=== PATIENT | female | born 1965 | race Caucasian/White ===

== ENCOUNTER 2017-05-16 19:26 | Inpatient (IN) | payer OTHER ==
[~2017-05-16] VITALS: Ht 157.5 cm; Wt 94.4 kg
[~2017-05-16 19:26] MED LIST: AMLODIPINE BESY10 MG PO; BENICAR HCT 401 EAC1 PO; BYSTOLIC20 MG PO; CALCIUM 600 MG1 EACH PO; CEFDINIR300 MG PO; CEFTIN250 MG PO; CITALOPRAM HBR20 MG PO; COMPAZINE10 MG PO; LEVOXYL125 MCG PO; LIPITOR80 MG PO; LISINOPRIL20 MG PO; LO-DOSE ASPIRIN81 M1 PO; NABUMETONE750 MG PO; OXYBUTYNIN CHLOR5 MG PO; PROMETHAZINE V180 ML PO; TESSALON200 MG PO; VOLTAREN 1% GE100 GM TP; ZITHROMAX500 MG PO; ZYRTEC10 M3 PO
[2017-05-16 20:24] LABS: HEMATOCRIT 39.7 % (36.0-46.0); HEMOGLOBIN 13.7 G/DL (11.9-15.5); MCH 30.5 PG (29.0-34.0); MCHC 34.5 G/DL (30.0-36.0); MCV 88.4 FL (83-99); PLATELET COUNT 354 K/uL (156-360); RBC DIS.WIDTH-CV 12.5 % (11.8-14.6); RBC DIS.WIDTH-SD 40.8 % (39-53); RED BLOOD COUNT 4.49 M/uL (3.80-5.20); WHITE BLOOD COUNT 9.3 K/uL (4.1-10.2)
[2017-05-16 20:40] LABS: CHLORIDE 108 mEq/L (99-109); POTASSIUM 3.6 mEq/L (3.7-5.4); SODIUM 140 mEq/L (136-147)
[2017-05-16 20:41] LABS: GLUCOSE 129 mg/dL (70-99)
[2017-05-16 20:45] LABS: CREATININE 0.7 mg/dL (0.6-1.3); GFR ESTIMATE (CALCULATED) > 59 mL/min/
[2017-05-16 20:46] LABS: UREA NITROGEN (BUN) 12 mg/dL (9-23)
[2017-05-16] MEDS ORDERED: LO-DOSE ASPIRIN81 M2 PO (21:26)
[2017-05-16] MEDS ORDERED: ATORVASTATIN CA80 MG PO (21:28)
[2017-05-16] MEDS ORDERED: BENADRYL ALLERG25 MG PO (21:28)
[2017-05-16] MEDS ORDERED: DITROPAN5 MG PO (21:28)
[2017-05-16] MEDS ORDERED: VENTOLIN HFA18 GM IH (21:29)
[2017-05-17 00:45] VITALS: BP 138/94
[2017-05-17 03:10] VITALS: BP 111/69
[2017-05-17 06:43] LABS: HEMATOCRIT 41.3 % (36.0-46.0); MCH 30.2 PG (29.0-34.0); MCHC 33.9 G/DL (30.0-36.0); MCV 89.2 FL (83-99); PLATELET COUNT 332 K/uL (156-360); RBC DIS.WIDTH-CV 12.5 % (11.8-14.6); RBC DIS.WIDTH-SD 41.1 % (39-53); RED BLOOD COUNT 4.63 M/uL (3.80-5.20)
[2017-05-17 07:06] LABS: CHLORIDE 107 MEQ/L (99-109); CREATININE 0.6 MG/DL (0.6-1.3); GFR ESTIMATE (CALCULATED) > 59 mL/min/; GLUCOSE 188 mg/dL (70-99); SODIUM 140 MEQ/L (136-147); UREA NITROGEN (BUN) 13 mg/dL (9-23)
[2017-05-17 07:08] LABS: POTASSIUM 4.5 MEQ/L (3.7-5.4)
[2017-05-17 08:07] VITALS: BP 107/65
[2017-05-17 12:30] VITALS: BP 132/80
[2017-05-17 16:01] VITALS: BP 1025/65
[2017-05-17 23:08] VITALS: BP 142/75
[2017-05-18 04:48] LABS: BASOPHIL (%) 0 % (0-1); EOSINOPHIL (%) 0 % (0-5); HEMATOCRIT 38.5 % (36.0-46.0); HEMOGLOBIN 13.1 G/DL (11.9-15.5); IMMATURE GRANULOCYTE (%) 0.5 % (0.0-0.7); LYMPHOCYTE COUNT 1.7 K/uL (1.0-2.8); MCV 88.1 FL (83-99); MONOCYTE (%) 3.6 % (3-12); MONOCYTE COUNT 0.5 K/uL (0-0.8); NEUTROPHIL (%) 81.9 % (45-76); NEUTROPHIL COUNT 10.1 K/uL (1.8-6.4); PLATELET COUNT 301 K/uL (156-360); RBC DIS.WIDTH-CV 12.5 % (11.8-14.6); RBC DIS.WIDTH-SD 40.6 % (39-53); RED BLOOD COUNT 4.37 M/uL (3.80-5.20); WHITE BLOOD COUNT 12.4 K/uL (4.1-10.2)
[2017-05-18 05:06] LABS: CHLORIDE 108 mEq/L (99-109); POTASSIUM 4.1 mEq/L (3.7-5.4); SODIUM 139 mEq/L (136-147)
[2017-05-18 05:08] LABS: GLUCOSE 158 mg/dL (70-99)
[2017-05-18 05:12] LABS: CREATININE 0.7 mg/dL (0.6-1.3); GFR ESTIMATE (CALCULATED) > 59 mL/min/
[2017-05-18 05:13] LABS: UREA NITROGEN (BUN) 12 mg/dL (9-23)
[2017-05-18 09:46] VITALS: BP 149/80
[2017-05-18 13:48] VITALS: BP 119/73
[2017-05-18] MEDS ORDERED: ENDOCET 5-3251 EACH PO (15:25)
[2017-05-18] MEDS ORDERED: DECADRON4 MG PO (15:25)
[2017-05-18 17:10] VITALS: BP 131/69
== END 2017-05-18 18:51 | disposition home or self-care (01) | DRG 54 ==
LOC: EME 19:26 → 3EAST 23:10 → EDOF 23:10 → ENRESERV 23:11 → 3EAST 05-17 00:34
PROVIDERS: Emergency Medicine; Hospitalist
DX: C79.31 Secondary malignant neoplasm of brain (principal); G93.6 Cerebral edema; C78.01 Secondary malignant neoplasm of right lung; C78.02 Secondary malignant neoplasm of left lung; I10 Essential (primary) hypertension; R29.6 Repeated falls; E03.9 Hypothyroidism, unspecified; E78.5 Hyperlipidemia, unspecified; M19.90 Unspecified osteoarthritis, unspecified site; R29.810 Facial weakness; F31.9 Bipolar disorder, unspecified; E78.00 Pure hypercholesterolemia, unspecified; G47.30 Sleep apnea, unspecified; Z85.3 Personal history of malignant neoplasm of breast; Z92.21 Personal history of antineoplastic chemotherapy; Z92.3 Personal history of irradiation; E66.01 Morbid (severe) obesity due to excess calories; Z68.38 Body mass index [BMI] 38.0-38.9, adult
CPT/HCPCS: 70450; 70553; 71046; 71250; 77290; 77307; 77334; 77412; 77417; 80048; 81003; 85025; 85027; 90686; 99202; 99281; 99284; J1100; J2060; J7040

== ENCOUNTER → 2017-10-01 | Outpatient (CLI) | payer OTHER ==
[~2017-10-01] VITALS: Ht 157.5 cm; Wt 64.0 kg
[~2017-10-01] MED LIST changes: +ATORVASTATIN CA80 MG PO; +BENADRYL ALLERG25 MG PO; +DECADRON4 MG PO; +DITROPAN5 MG PO; +ENDOCET 5-3251 EACH PO; +KEPPRA500 MG PO; +LEVOXYL112 MCG PO; -LEVOXYL125 MCG PO; +LO-DOSE ASPIRIN81 M2 PO; +TYLENOL REGULA325 MG PO; +VENTOLIN HFA18 GM IH
== END | disposition home or self-care (01) ==
LOC: AMB 12:00
DX: K29.70 Gastritis, unspecified, without bleeding (principal); C50.912 Malignant neoplasm of unspecified site of left female breast; E78.00 Pure hypercholesterolemia, unspecified; I10 Essential (primary) hypertension; E03.9 Hypothyroidism, unspecified; Z79.82 Long term (current) use of aspirin; R63.4 Abnormal weight loss
CPT/HCPCS: 88305; 88342 TC; 93005; J2250

== ENCOUNTER 2017-10-22 19:18 | Inpatient (IN) | payer OTHER ==
[~2017-10-22] VITALS: Ht 157.5 cm; Wt 58.1 kg
[2017-10-22 20:25] LABS: HEMATOCRIT 40.2 % (36.0-46.0); MCH 30.5 PG (29.0-34.0); MCHC 37.3 G/DL (30.0-36.0); PLATELET COUNT 274 K/uL (156-360); RBC DIS.WIDTH-CV 13.1 % (11.8-14.6); RBC DIS.WIDTH-SD 38.8 % (39-53); RED BLOOD COUNT 4.92 M/uL (3.80-5.20); WHITE BLOOD COUNT 5.6 K/uL (4.1-10.2)
[2017-10-22 20:28] LABS: MCV 81.7 FL (83-99)
[2017-10-22 20:37] LABS: CHLORIDE 95 mEq/L (99-109); POTASSIUM 3.5 mEq/L (3.7-5.4); SODIUM 134 mEq/L (136-147)
[2017-10-22 20:39] LABS: GLUCOSE 96 mg/dL (70-99)
[2017-10-22 20:43] LABS: CREATININE 0.7 mg/dL (0.6-1.3); GFR ESTIMATE (CALCULATED) > 59 mL/min/
[2017-10-22 20:44] LABS: UREA NITROGEN (BUN) 7 mg/dL (9-23)
[2017-10-22 20:51] LABS: QUANTITATIVE HCG 11.3 MIU/ML
[2017-10-22 21:08] LABS: APPEARANCE SL.HAZY ((CLEAR)); BILIRUBIN SMALL; BLOOD NEGATIVE; COLOR AMBER ((YELLOW)); GLUCOSE (STRIP) NEGATIVE; KETONES 20; LEUKOCYTES MODERATE; NITRITE NEGATIVE; PROTEIN (STRIP) 30; SPECIFIC GRAVITY 1.025 (1.000-1.030)
[2017-10-22 21:30] LABS: BACTERIA 1+ /HPF; EPITHELIAL CELLS 1+ /HPF; MUCUS 3+ /LPF; RED BLOOD CELLS NONE SEEN /HPF (0-5); UCUL ADDED? YES; WHITE BLOOD CELLS 30-40 /HPF (0-5)
[2017-10-22 22:04] LABS: TOTAL PROTEIN 6.8 g/dL (6.4-8.3)
[2017-10-22 22:06] LABS: TOTAL BILIRUBIN 1.9 mg/dL (0.0-1.0)
[2017-10-22 22:07] LABS: ALKALINE PHOSPHATASE 57 IU/L (3-129)
[2017-10-22 22:09] LABS: AST (GOT) 33 IU/L (2-34); DIRECT BILIRUBIN 0.7 mg/dL (0.0-0.3)
[2017-10-22 22:10] LABS: ALT (GPT) 30 IU/L (3-49); LIPASE 5 U/L (1.0-51.0)
[2017-10-23] MEDS ORDERED: ZOFRAN4 MG PO (00:51)
[2017-10-23 02:16] LABS: INTER. NORMALIZED RATIO 1.2
[2017-10-23 02:18] LABS: PTT 26.5 SEC (25-37)
[2017-10-23 06:01] VITALS: BP 121/81
[2017-10-23 07:38] VITALS: BP 110/65
[2017-10-23 07:59] LABS: HEMATOCRIT 34.7 % (36.0-46.0); MCH 30.2 PG (29.0-34.0); MCHC 36.3 G/DL (30.0-36.0); MCV 83.2 FL (83-99); PLATELET COUNT 193 K/uL (156-360); RBC DIS.WIDTH-CV 13.2 % (11.8-14.6); RBC DIS.WIDTH-SD 39.7 % (39-53); RED BLOOD COUNT 4.17 M/uL (3.80-5.20); WHITE BLOOD COUNT 3.2 K/uL (4.1-10.2)
[2017-10-23 08:00] LABS: HEMOGLOBIN 12.6 G/DL (11.9-15.5)
[2017-10-23 08:03] LABS: INTER. NORMALIZED RATIO 1.2
[2017-10-23 08:10] LABS: PTT 106.7 SEC (25-37)
[2017-10-23 08:53] LABS: ALBUMIN 3.2 G/DL (3.2-4.8); ALKALINE PHOSPHATASE 45 IU/L (3-129); ALT (GPT) 18 IU/L (3-49); AST (GOT) 24 IU/L (2-34); CHLORIDE 101 MEQ/L (99-109); CREATININE 0.5 MG/DL (0.6-1.3); GFR ESTIMATE (CALCULATED) > 59 mL/min/; GLUCOSE 75 mg/dL (70-99); POTASSIUM 3.1 MEQ/L (3.7-5.4); SODIUM 137 MEQ/L (136-147); TOTAL BILIRUBIN 1.1 MG/DL (0.0-1.0); TOTAL PROTEIN 5.2 G/DL (6.4-8.3); UREA NITROGEN (BUN) 5 mg/dL (9-23)
[2017-10-23 10:57] VITALS: BP 99/61
[2017-10-23 14:22] LABS: INTER. NORMALIZED RATIO 1.1
[2017-10-23 14:24] LABS: PTT 86.4 SEC (25-37)
[2017-10-23 16:40] VITALS: BP 106/66
[2017-10-23 19:05] VITALS: BP 113/63
[2017-10-24 00:01] VITALS: BP 97/59
[2017-10-24 07:20] VITALS: BP 81/55
[2017-10-24 09:03] LABS: HEMOGLOBIN 11.7 G/DL (11.9-15.5); MCH 29.9 PG (29.0-34.0); MCHC 35.5 G/DL (30.0-36.0); MCV 84.4 FL (83-99); PLATELET COUNT 184 K/uL (156-360); RBC DIS.WIDTH-CV 13.5 % (11.8-14.6); RBC DIS.WIDTH-SD 41.6 % (39-53); RED BLOOD COUNT 3.91 M/uL (3.80-5.20); WHITE BLOOD COUNT 2.9 K/uL (4.1-10.2)
[2017-10-24 09:17] LABS: CHLORIDE 104 MEQ/L (99-109); CREATININE 0.5 MG/DL (0.6-1.3); GFR ESTIMATE (CALCULATED) > 59 mL/min/; GLUCOSE 84 mg/dL (70-99); POTASSIUM 3.2 MEQ/L (3.7-5.4); SODIUM 141 MEQ/L (136-147); UREA NITROGEN (BUN) 3 mg/dL (9-23)
[2017-10-24 11:00] VITALS: BP 95/67
[2017-10-24 16:30] VITALS: BP 115/58
[2017-10-24 18:47] VITALS: BP 106/66
[2017-10-24 22:49] VITALS: BP 107/68
[2017-10-25 07:15] VITALS: BP 105/65
[2017-10-25 09:37] LABS: HEMATOCRIT 31.8 % (36.0-46.0); HEMOGLOBIN 11.4 G/DL (11.9-15.5); MCH 30.2 PG (29.0-34.0); MCHC 35.8 G/DL (30.0-36.0); MCV 84.1 FL (83-99); PLATELET COUNT 173 K/uL (156-360); RBC DIS.WIDTH-CV 13.2 % (11.8-14.6); RED BLOOD COUNT 3.78 M/uL (3.80-5.20); WHITE BLOOD COUNT 2.3 K/uL (4.1-10.2)
[2017-10-25 10:00] LABS: CHLORIDE 108 MEQ/L (99-109); CREATININE 0.4 MG/DL (0.6-1.3); GFR ESTIMATE (CALCULATED) > 59 mL/min/; GLUCOSE 86 mg/dL (70-99); POTASSIUM 3.8 MEQ/L (3.7-5.4); SODIUM 139 MEQ/L (136-147); UREA NITROGEN (BUN) 2 mg/dL (9-23)
[2017-10-25] MEDS ORDERED: ELIQUIS5 MG PO ×2 (11:09→11:10)
== END 2017-10-25 13:29 | disposition home health service (06) | DRG 176 ==
LOC: EME 19:18 → EDOF 10-23 02:12 → 5EAST 10-23 05:47
PROVIDERS: Emergency Medicine; Internal Medicine; Physician Assistant
DX: I26.99 Other pulmonary embolism without acute cor pulmonale (principal); N39.0 Urinary tract infection, site not specified; C79.31 Secondary malignant neoplasm of brain; R27.0 Ataxia, unspecified; E87.6 Hypokalemia; R63.4 Abnormal weight loss; I95.9 Hypotension, unspecified; K21.9 Gastro-esophageal reflux disease without esophagitis; J45.909 Unspecified asthma, uncomplicated; F32.9 Major depressive disorder, single episode, unspecified; I10 Essential (primary) hypertension; E78.5 Hyperlipidemia, unspecified; E03.9 Hypothyroidism, unspecified; G89.29 Other chronic pain; R10.31 Right lower quadrant pain; Z85.3 Personal history of malignant neoplasm of breast; Z79.82 Long term (current) use of aspirin
CPT/HCPCS: 70450; 70553; 71260; 74177; 80048; 80053; 80076; 81003; 83605; 83690; 84702; 85027; 85610; 85730; 87040; 87086; 93970; 99281; 99285; J0696; J2550; J7030

== ENCOUNTER 2017-11-03 20:22 | Observation (INO) | payer OTHER ==
[~2017-11-03] VITALS: Ht 157.5 cm; Wt 56.8 kg
[~2017-11-03 20:22] MED LIST changes: +ELIQUIS5 MG PO; +ZOFRAN4 MG PO
[2017-11-03 20:57] LABS: MCH 30.2 PG (29.0-34.0); MCHC 36.6 G/DL (30.0-36.0); MCV 82.5 FL (83-99); NRBC (%) 0.9 /100 WBC (0-0); PLATELET COUNT 458 K/uL (156-360); RBC DIS.WIDTH-CV 13.7 % (11.8-14.6); RBC DIS.WIDTH-SD 39.8 % (39-53); RED BLOOD COUNT 4.97 M/uL (3.80-5.20); WHITE BLOOD COUNT 7.9 K/uL (4.1-10.2)
[2017-11-03 21:02] LABS: CHLORIDE 97 mEq/L (99-109); SODIUM 134 mEq/L (136-147)
[2017-11-03 21:03] LABS: GLUCOSE 194 mg/dL (70-99)
[2017-11-03 21:07] LABS: CREATININE 0.8 mg/dL (0.6-1.3); GFR ESTIMATE (CALCULATED) > 59 mL/min/
[2017-11-03 21:08] LABS: UREA NITROGEN (BUN) 9 mg/dL (9-23)
[2017-11-03 21:12] LABS: TROP-I INTERPRETATION NEGATIVE; TROPONIN-I 0.01 ng/mL (0.0-0.30)
[2017-11-03 21:50] LABS: ALBUMIN 4.1 g/dL (3.2-4.8)
[2017-11-03 21:54] LABS: TOTAL BILIRUBIN 2.7 mg/dL (0.0-1.0)
[2017-11-03 21:56] LABS: ALKALINE PHOSPHATASE 67 IU/L (3-129)
[2017-11-03 21:58] LABS: AST (GOT) 20 IU/L (2-34); DIRECT BILIRUBIN 0.9 mg/dL (0.0-0.3)
[2017-11-03 21:59] LABS: ALT (GPT) 26 IU/L (3-49)
[2017-11-04 00:39] LABS: APPEARANCE SL.HAZY ((CLEAR)); BILIRUBIN NEGATIVE; BLOOD SMALL; COLOR AMBER ((YELLOW)); GLUCOSE (STRIP) NEGATIVE; KETONES NEGATIVE; LEUKOCYTES LARGE; NITRITE NEGATIVE; PROTEIN (STRIP) 30; SPECIFIC GRAVITY 1.014 (1.000-1.030)
[2017-11-04] MEDS ORDERED: LEVETIRACETAM500 MG PO (00:48)
[2017-11-04] MEDS ORDERED: ANTIVERT25 MG PO (00:48)
[2017-11-04] MEDS ORDERED: ATORVASTATIN CA80 MG PO (00:49)
[2017-11-04] MEDS ORDERED: DITROPAN5 MG PO (00:49)
[2017-11-04 00:50] LABS: BACTERIA RARE /HPF; EPITHELIAL CELLS 1+ /HPF; HYALINE CASTS 20-30 /LPF; MUCUS 1+ /LPF; UCUL ADDED? YES; URIC ACID CRYSTALS 2+ /HPF; WHITE BLOOD CELLS 30-40 /HPF (0-5)
[2017-11-04] MEDS ORDERED: AMLODIPINE BESY10 MG PO (00:50)
[2017-11-04] MEDS ORDERED: LEVOTHYROXINE112 MCG PO (00:50)
[2017-11-04] MEDS ORDERED: RANITIDINE HCL150 MG PO (00:50)
[2017-11-04] MEDS ORDERED: LEVOTHYROXINE125 MCG PO (00:50)
[2017-11-04 02:40] VITALS: BP 137/94
[2017-11-04 03:42] LABS: TROP-I INTERPRETATION NEGATIVE; TROPONIN-I 0.01 ng/mL (0.0-0.30)
[2017-11-04 07:41] VITALS: BP 137/96
[2017-11-04 09:04] LABS: HEMATOCRIT 34.7 % (36.0-46.0); MCH 30.6 PG (29.0-34.0); MCHC 36.9 G/DL (30.0-36.0); RBC DIS.WIDTH-CV 13.6 % (11.8-14.6); RBC DIS.WIDTH-SD 40.3 % (39-53); RED BLOOD COUNT 4.18 M/uL (3.80-5.20); WHITE BLOOD COUNT 5.3 K/uL (4.1-10.2)
[2017-11-04 09:05] LABS: HEMOGLOBIN 12.8 G/DL (11.9-15.5)
[2017-11-04 09:13] LABS: TROP-I INTERPRETATION NEGATIVE; TROPONIN-I < 0.01 ng/mL (0.0-0.30)
[2017-11-04 09:17] LABS: PLAT.SUFFICIENCY ADEQUATE
[2017-11-04 09:20] LABS: ALBUMIN 3.2 G/DL (3.2-4.8); ALKALINE PHOSPHATASE 44 IU/L (3-129); ALT (GPT) 17 IU/L (3-49); AST (GOT) 17 IU/L (2-34); CHLORIDE 104 MEQ/L (99-109); CREATININE 0.4 MG/DL (0.6-1.3); GFR ESTIMATE (CALCULATED) > 59 mL/min/; SODIUM 136 MEQ/L (136-147); TOTAL BILIRUBIN 1.8 MG/DL (0.0-1.0); TOTAL PROTEIN 5.3 G/DL (6.4-8.3); UREA NITROGEN (BUN) 5 mg/dL (9-23)
[2017-11-04 09:26] LABS: PLATELET COUNT 284 K/uL (156-360)
[2017-11-04 09:30] LABS: GLUCOSE 99 mg/dL (70-99); POTASSIUM 3.7 MEQ/L (3.7-5.4)
[2017-11-04 10:20] LABS: HEMOGLOBIN A1c (GLYCOHEMOGLOB) 5.3 % (Below 5.7)
[2017-11-04 13:06] VITALS: BP 127/89
[2017-11-04 16:02] VITALS: BP 118/84
[2017-11-04] MEDS ORDERED: ELIQUIS5 MG PO (16:56)
[2017-11-04] MEDS ORDERED: CEFDINIR300 MG PO (17:01)
== END 2017-11-04 18:03 | disposition home health service (06) ==
LOC: EME 20:22 → EDOF 11-04 01:16 → 4SOUTH 11-04 02:33
PROVIDERS: Emergency Medicine; Internal Medicine
DX: N39.0 Urinary tract infection, site not specified (principal); I95.9 Hypotension, unspecified; E87.6 Hypokalemia; R55 Syncope and collapse; C79.31 Secondary malignant neoplasm of brain; F32.9 Major depressive disorder, single episode, unspecified; J45.909 Unspecified asthma, uncomplicated; K21.9 Gastro-esophageal reflux disease without esophagitis; Z79.82 Long term (current) use of aspirin; Z79.01 Long term (current) use of anticoagulants; I10 Essential (primary) hypertension; E78.5 Hyperlipidemia, unspecified; E03.9 Hypothyroidism, unspecified; R73.9 Hyperglycemia, unspecified; Z86.711 Personal history of pulmonary embolism; Z85.3 Personal history of malignant neoplasm of breast; E78.00 Pure hypercholesterolemia, unspecified
CPT/HCPCS: 70450; 71046; 74018; 80048; 80053; 80076; 81003; 82948; 83036; 83605; 84484; 85027; 87086; 93005; 99281; 99284; G0378; G8978 GP CK; G8979 CJ; G8980 GP CK; J0696; J7030